=== PATIENT | male | born 1975 | race Caucasian/White ===

== ENCOUNTER 2023-09-07 23:16 | Emergency (ER) | payer BC ==
[2023-09-07] MEDS: hydrOXYzine HCl 25 MG Tab PO ONE (23:42)
[2023-09-08] MEDS: ALPRAZolam 0.25 MG Tab PO ONE (00:30)
[2023-09-08] MEDS ORDERED: ALPRAZolam 0.25 MG Tab PO ONE (00:52)
== END 2023-09-08 01:20 | disposition home or self-care (01) ==
LOC: DL.ED 23:16
DX: F41.9 Anxiety disorder, unspecified (principal); F17.210 Nicotine dependence, cigarettes, uncomplicated; Z91.040 Latex allergy status
CPT/HCPCS: 93005; 93010; 99284; A9270-GY